=== PATIENT | female | born 1965 | race Caucasian/White ===

== ENCOUNTER 2022-07-16 00:08 | Day surgery (SDC) | payer OTHER, SELFPAY ==
[2022-07-07 09:38] VITALS: BMI 28.1
--- NOTE | 2022-07-07 09:41 | PC.NURSE ---
Report to the Outpatient Waiting Room, entrance under the green pavilion located off [facility], at time 0600 on date 07/16/22. Planned Procedure Time: 0730. Time changes happen often and if your time is changed the preop area will call you the afternoon before. - You and your visitor will be asked to self-screen and do not enter if you have any COVID symptoms. - Only one visitor is requested with a max of two and NO children visitors are allowed at this time. - The patient visitor may be requested to leave or wait in car when not with patient due to distancing restrictions. - A mask is optional within the hospital at this time. Patients may have clear liquids (water, carbonated beverages, clear teas, apple juice) until 3 hours prior to surgery with a maximum of 20 ounces. - No food from midnight until time of surgery Take the following medications with a SIP of water the morning of surgery: N/A DO NOT STOP ANY OF YOUR OTHER PRESCRIPTION MEDICATIONS PRIOR TO SURGERY EXCEPT THE FOLLOWING Medications to discontinue per physician VITAMINS Date to take last dose: 07/12/22 Please no make-up, nail tajik, hairspray, perfume, deodorant, or body powder the day of surgery. No jewelry (including any body piercings) or valuables the day of surgery, leave them at home. Please take a shower or bath the night before, or the morning of, surgery with an antibacterial soap. Wear comfortable, loose fitting clothing. - Jewelry must be removed prior to entering the operating room. Rings and piercings that are not removed may be cut off. - The hospital will not accept responsibility for valuables. - Please leave all valuables, including medications, at home the day of surgery. If you are going home after surgery, a licensed driver starting gate must drive you home. - NO public transportation without another adult if you receive anesthesia. - We recommend that an adult stay with you for 24 hours following discharge. - We also recommend that you do not drive, make important decision, drink alcoholic beverages, or take any drugs that were not prescribed by your health care provider for at least 24 hours after your discharge time. Follow any additional instructions given to you from your surgeon. If you or anyone in your household have experienced Covid symptoms in the past week, please notify your surgeon or the nurse liaison at the phone number below for possible testing. Telephone instructions given to LENORA ISBLEL and asked if any additional questions and then verbalized understanding. Patient advised to call surgeon office or pre surgery nurse liaison [phone] if any additional questions.
[2022-07-16 06:06] VITALS: BMI 28.3
[2022-07-16 06:10] VITALS: BP 124/79; PULSE 67; RESP 14; TEMP 36.1; O2SAT 100
[2022-07-16] MEDS: LACTATED RINGERS 1,000 ML 30 ML IV CONT (06:25)
[2022-07-16] MEDS: ACETAMINOPHEN 500 MG TABLET 1000 MG PO (06:30)
--- NOTE | 2022-07-16 06:45 | WPDANESEPPF ---
Anes - Initial Pre Proc Eval Procedure: Operation Date: 07/16/22 07:30 Proposed Procedures p Hysteroscopy, Biopsy of Endometrium, Possible Polypectomy - Harjit Garcia MD Date/Time: 07/16/22 06:45 Surgeon: Harjit Garcia MD Pre Op Diagnosis: lesion of cervix Patient Data Age: 57 Gender: F Height: 1.73 m Weight: 83.95 kg Allergies Allergy/AdvReac Type Severity Reaction Status Date / Time No Known Allergies Allergy Verified 07/16/22 06:17 Home Medications Medication Instructions Recorded Confirmed Type cholecalciferol (vitamin D3) 125 125 mcg PO DAILY 07/07/22 07/16/22 History mcg (5,000 unit) tablet (Vitamin D3) Patient hx anesthesia problems: none Family hx anesthesia problems: none Results Review: All pre-operative results and documents have been reviewed as part of the pre-operative evaluation. [facility] Past Medical History Medical History (Updated 07/16/22 @ 06:47 by Zelalem Baltazar MD) Overweight Surgical History Surgical History (Updated 07/16/22 @ 06:47 by Zelalem Baltazar MD) H/O arthroscopic knee surgery H/O colonoscopy Social History Social History Smoking status: Never smoker Alcohol intake: current Drinks per week: 2 Substance use: never Substance use type: does not use Living arrangements: with family Spiritual care concerns: No Anes - Eval Final PreProcedure Day of Procedure 07/16/22 06:45 Patient weight: overweight Heart: regular rate and rhythm Lungs: clear to auscultation Airway: Mallampati scale class II Neurological: alert and oriented Last oral intake: >/= 8 hours ASA classification: II Emergent: no Anesthetic plan: proceed Anesthesia type and monitoring: general GIVS and standard monitoring Results Review: All pre-operative results and documents have been reviewed as part of the pre-operative evaluation. Informed Consent: The patient's anesthetic plan and its attendant risks and benefits were discussed with the patient/family/POA. Questions were solicited and answers provided to the satisfaction of the patient/family/POA.
--- NOTE | 2022-07-16 07:23 | WPDHPUPDATE1 ---
History and Physical Update Update Date/Time: 07/16/22 07:23 History and Physical has been reviewed, including an updated exam of the patient. There are NO changes in the patient's condition. Risks, benefits, and alternatives have been discussed and questions answered. Patient agrees to proceed with procedure.
[2022-07-16 08:09] VITALS: BP 112/50; PULSE 75; RESP 14; O2SAT 99
[2022-07-16 08:35] VITALS: BP 114/77; PULSE 62; RESP 16
--- NOTE | 2022-07-16 08:42 | W.PM.PROC2 ---
Procedure Note - Detailed Date of Procedure 07/16/22 Pre-op Diagnosis lesion of endo-cervix Post-op Diagnosis Same Procedure Performed Hysteroscopic removal of endocervical lesion Surgeon Harjit Garcia MD Anesthesia MAC Indications endocervical lesion Findings 2 cm endocervical polyp. Description of Procedure the patient was taken the operating room. She was prepped and draped in the dorsal lithotomy position after induction of mac anesthesia. A speculum was placed in the vagina. The cervix was grasped with a tenaculum. The cervix was dilated about 1 cm. The hysteroscope was inserted. Endocervical polyp was observed. It was grasped multiple times with an polyp grasper. It was then curettage with A medium-size curette. Scope could not be used to evaluate the endometrial cavity. The endocervical os was densely scarred. It was too scarred to pass into the endometrial cavity. the sample was collected on Telfa and sent to pathology. re-examination of the endocervix with the hysteroscope revealed a removal of the polyp that was complete Patient tolerated the procedure well. The speculum and tenaculum were removed. She was taken recovery room in stable condition. Sponge lap and needle counts were correct x2. Estimated Blood Loss 40 Drains No Packing No Pathology Yes Complications No immediate complications Condition Stable Disposition PACU
== END 2022-07-16 08:52 | disposition home or self-care (01) ==
PROVIDERS: PCP Family Medicine; Visit Provider Obstetrics & Gynecology
PROC: 0U5B8ZZ Destruction of Endometrium, Via Natural or Artificial Opening Endoscopic (ICD-10-PCS; CPT 58563; principal; 2022-07-16 07:30)
DX: N84.1 Polyp of cervix uteri (principal)
CPT/HCPCS: 58558; 88305; A9270; J2250; J2704; J3010; J7120